=== PATIENT | female | born 2000 | race African-American/Black ===

== ENCOUNTER 2023-04-16 11:23 | Emergency (ER) | payer MEDICAID, OTHER ==
[~2023-04-16] VITALS: Ht 170.2 cm; Wt 59.1 kg
[2023-04-16 11:27] VITALS: TEMP 97.9
[2023-04-16] MEDS ORDERED: SODIUM CHLORIDE 0.9% 1,000 ML IV ONE (11:45)
[2023-04-16 11:54] LABS: COVID AG,FIA SOURCE NASAL SWAB
[2023-04-16 12:04] LABS: HEMATOCRIT 38.7 % (36-46); HEMOGLOBIN 12.9 g/dL (12.0-16.0); MEAN CORPUSCULAR HEMOGLOBIN 27.6 pg (26.0-34.0); MEAN CORPUSCULAR HGB CONC 33.4 G/dL (31.0-37.0); MEAN CORPUSCULAR VOLUME 83 fL (80-100); PLATELET COUNT (AUTO) 231 K/uL (150-450); RED BLOOD CELL COUNT(AUTO) 4.68 MIL/uL (4.00-5.20); RED CELL DISTRIBUTION WIDTH 12.9 % (11.5-14.5); WHITE BLOOD COUNT (AUTO) 2.2 K/uL (4.5-11.0)
[2023-04-16 12:06] LABS: BAND NEUTROPHILS % (MANUAL) 0 % (0-5)
[2023-04-16 12:08] LABS: INFLUENZA TYPE A NEGATIVE FOR TYPE A (NEGATIVE); INFLUENZA TYPE B NEGATIVE FOR TYPE B (NEGATIVE)
[2023-04-16 12:09] LABS: SARS-COV2 (COVID) ANTIGEN,FIA Negative (Negative)
[2023-04-16] MEDS ORDERED: PIPERACILLIN/TAZO 3.375 GM/D5W 50 ML IV ONE (12:15)
[2023-04-16] MEDS ORDERED: VANCOMYCIN HCL 1.25 GM in DEXTROSE 5%-WATER 250 ML IV ONE (12:15)
[2023-04-16 12:21] LABS: ANION GAP 9 mmol/L (8-16); CALCIUM, TOTAL 8.6 mg/dL (8.8-10.5); CARBON DIOXIDE 26 mmol/L (22-29); CHLORIDE 100 mmol/L (98-107); CREATININE 0.67 mg/dL (0.60-1.30); GLOMERULAR FILTR. RATE CALC > 60 mL/min (>60); GLUCOSE,RANDOM 124 mg/dL (70-110); SODIUM SERUM 135 mmol/L (136-145); UREA NITROGEN, BLOOD 11 mg/dL (7-18)
[2023-04-16 12:22] LABS: B-TYPE NATRIURETIC PEPTIDE < 5 pg/mL (0-100)
[2023-04-16 12:27] LABS: TROPONIN I-HIGH SENSITIVITY 4 ng/L (<51)
[2023-04-16 12:30] LABS: INR 1.2 (0.9-1.1); LACTIC ACID 2.4 mmol/L (0.4-2.0); PROTHROMBIN TIME 12.6 SEC (9.4-11.6)
[2023-04-16] MEDS ORDERED: POTASSIUM CHLORIDE 20 MEQ ER TABLET PO ONE (12:30)
[2023-04-16] MEDS ORDERED: PROPRANOLOL HCL 1 MG/ML VIAL IVP ONE (12:30)
[2023-04-16 12:36] LABS: ALANINE AMINOTRANSFERASE 68 U/L (12-78); ALBUMIN 3.3 g/dL (3.4-5.0); ALKALINE PHOSPHATASE 117 U/L (46-116); ASPARTATE AMINOTRANSFERASE 69 U/L (15-37); BILIRUBIN,TOTAL 0.2 mg/dL (0.1-1.0); CREATINE KINASE, TOTAL ONLY 60 U/L (26-192); FREE T4 (FREE THYROXINE) 5.21 ng/dL (0.76-1.46); HCG,QUANTITATIVE < 1 mIU/mL (0-6); LYMPHOCYTES % (MANUAL) 51 % (22-44); MONOCYTES % (MANUAL) 23 % (2-9); PHOSPHORUS 2.4 mg/dL (2.5-4.9); SEGMENTED NEUTROPHILS % 26 % (40-70); T4 (THYROXINE) 28.9 mcg/dL (4.7-13.3); TOTAL CELLS COUNTED 100; TOTAL PROTEIN, SERUM 8.2 g/dL (6.4-8.2)
[2023-04-16 12:37] LABS: RBC MORPHOLOGY COMMENT NORMAL RBC MORPH
[2023-04-16] MEDS ORDERED: HYDROCORTISONE SOD SUCC 100 MG/2 ML VIAL IVP ONE (13:00)
[2023-04-16 13:12] LABS: THYROID STIMULATING HORMONE < 0.01 uIU/mL (0.36-3.74)
[2023-04-16] MEDS ORDERED: POTASSIUM PHOS,M-BASIC-D-BASIC 10 MMOL in DEXTROSE 5%-WATER 100 ML IV ONE (13:15)
[2023-04-16] MEDS ORDERED: METHIMAZOLE 10 MG TABLET PO ONE (13:15)
[2023-04-16 13:51] LABS: APPEARANCE,URINE CLEAR (CLEAR); BILIRUBIN,URINE NEGATIVE (NEGATIVE); COLOR,URINE LIGHT YELLOW (YELLOW); GLUCOSE, URINE (UA) NEGATIVE (NEGATIVE); KETONES,URINE NEGATIVE (NEGATIVE); LEUKOCYTE ESTERASE ,URINE NEGATIVE (NEGATIVE); NITRATE,URINE NEGATIVE (NEGATIVE); OCCULT BLOOD,URINE MODERATE (NEGATIVE); PH,URINE 5.5 (5.0-8.0); PH,URINE DRUG SCREEN 5.5 (5.0-8.0); PROTEIN,URINE TRACE mg/dL (NEGATIVE); SPECIFIC GRAVITIY, URINE 1.007 (1.003-1.030); UROBILINOGEN,URINE <=1.0 mg/dL (<=1.0)
[2023-04-16 13:58] LABS: ALCOHOL, URINE DRUG SCREEN NEGATIVE (NEGATIVE); AMPHET/METH SCREEN,URINE NEGATIVE (NEGATIVE); BARBITURATE SCREEN, URINE NEGATIVE (NEGATIVE); BENZODIAZEPINES SCREEN,URINE NEGATIVE (NEGATIVE); CANNABINOID SCREEN,URINE NEGATIVE (NEGATIVE); COCAINE SCREEN,URINE NEGATIVE (NEGATIVE); METHADONE SCREEN, URINE NEGATIVE (NEGATIVE); OPIATE SCREEN,URINE NEGATIVE (NEGATIVE); PHENCYCLIDINE SCREEN,URINE NEGATIVE (NEGATIVE)
[2023-04-16 14:06] LABS: BACTERIA,URINE None Seen /HPF (None Seen); SQUAMOUS EPITHELIAL CELL,UR Few /LPF (None Seen); WBC,URINE 0-2 /HPF (0-5)
[2023-04-16] MEDS ORDERED: POTASSIUM IODIDE PO ONE (15:00)
[2023-04-16] MEDS ORDERED: IODINE PO ONE (15:00)
[2023-04-16 18:41] VITALS: BP 113/67; PULSE 91; RESP 18
== END 2023-04-16 19:36 | disposition short-term general hospital (02) ==
LOC: EMS 11:23
DX: E05.91 Thyrotoxicosis, unspecified with thyrotoxic crisis or storm (principal); Z20.822 Contact with and (suspected) exposure to COVID-19
CPT/HCPCS: 99291; 96365; 71045; 96375; 96361; 96366; 87426; 80053; 81001; 82550; 83605; 83735; 83880; 84100; 84439; 84443; 84484; 84702; 85025; 85610; 85730; 87040; 87804; 36415; 84481; 93005; 96368; 80307; 84436; J1720; J2543; J1800; J3370; J7060 ×2; J3490; J7030; G0480

== ENCOUNTER 2023-05-09 02:38 | Emergency (ER) | payer MEDICAID ==
[~2023-05-09] VITALS: Ht 167.6 cm; Wt 59.1 kg
[2023-05-09 02:50] VITALS: BP 112/68; PULSE 71; RESP 18; TEMP 98.2
[2023-05-09] MEDS ORDERED: PROPARACAINE HCL 0.5% 15 ML OPHTHALMIC SOLUTION OU ONE (03:15)
[2023-05-09] MEDS ORDERED: CIPOTIC AS (03:18)
== END 2023-05-09 03:50 | disposition home or self-care (01) ==
LOC: EMS 02:38
DX: H60.92 Unspecified otitis externa, left ear (principal)
CPT/HCPCS: 99283